=== PATIENT | female | born 1990 | race Caucasian/White ===

== ENCOUNTER → 2020-10-07 | Outpatient (CLI) | payer BC ==
--- NOTE | 2020-10-07 13:05 | MR ---
MRI brain without contrast. HISTORY: Dizziness and headache COMPARISON: None. TECHNIQUE: Multiecho multiplanar images of the brain were obtained without contrast. FINDINGS: On the T1-weighted sagittal images midline structures including the craniovertebral junction relation ships are normal. The ventricles, basal cisterns and sulci over the convexities are within normal limits and there is n o mass, mass effect or shift of the midline structures. No abnormal signal intensity is identified throughout the brain parenchyma. On the diffusion-weighted images there is no evidence of an acute ischemic event. The posterior fossa including the brainstem, fourth ventricle and cerebellar pontine angles appear no rmal. The intraorbital contents appear normal and symmetric. Visualized paranasal sinuses and mastoid air c ells are well aerated. IMPRESSION: No significant abnormality.
== END | disposition home or self-care (01) ==
LOC: RADMRIMAIN 11:40
PROVIDERS: ATTEND Family Medicine
DX: R51.9 Headache, unspecified (principal); R42 Dizziness and giddiness
CPT/HCPCS: 70551

== ENCOUNTER 2022-07-29 08:16 | Outpatient (CLI) | payer OTHER ==
[2022-07-29 10:17] VITALS: BP 123/84; PULSE 96; RESP 16; TEMP 97.3
--- NOTE | 2022-08-17 10:40 | P.MSEPDOC ---
Presenting Problems - Arrival Data Date of Arrival on Unit: 07/29/22 Time of Arrival on Unit: 08:16 Mode of Transport: Ambulatory - Complaint OB-Reason for Admission/Chief Complaint: Possible Onset of Labor Comment: pt started feeling increase in discomfort and vaginal pressure around 7:15 this am, denies lof/vb, reports + fm Medical History - Information : 2 Para: 1 Term: 1 : 0 Abortions: Spontaneous or Elective: 0 Number of Living Children: 1 - Gestational Age Gestational Age by JEFFERSON (wks/days): 38 Weeks and 4 Days - History Complications: GDM Review of Systems - Review of Systems Constitutional: No problems Breast: No problems ENT: No problems Cardiovascular: No problems Respiratory: No problems Gastrointestinal: No problems Genitourinary: No problems Musculoskeletal: No problems Neurological: No problems Skin: No problems Vital Signs - Temperature Temperature: 97.3 F Temperature Source: Temporal Artery Scan - Pulse Right Brachial Pulse Rate: 96 Pulse Assessment Method: Automatic Cuff - Respirations Respiratory Rate: 16 Oxygen Delivery Method: Room Air O2 Sat by Pulse Oximetry: 98 - Blood Pressure Right Arm Blood Pressure: 123/84 Blood Pressure Mean: 97 Blood Pressure Source: Automatic Cuff Medical Screen Scoring - Cervical Exam Dilation (cm): 2 Effacement (%): 60 Station: -3 Membranes: Intact - Uterine Contractions Frequency From (mins): 4 Frequency To (mins): 5 Duration From (seconds): 70 Duration To (seconds): 90 Intensity: Moderate Resting: Soft to palpation - Assessment - Baby A Baseline FHR: 140 Heart Rate - NICHD Category: Category I (Normal) NST: Reactive Physician Notification - Physician Notified Physician Notified Date: 07/29/22 Physician Notified Time: 10:08 Physician: Amara Issa New Order Received: Yes (dc home) Maternal Triage Index - Non-Urgent/Priority 4 Non-Urgent Priority 4: Yes Criteria Met for Priority 4: no cervical change noted with one hour recheck, pt ok to dc home at this time Disposition - Disposition OB Disposition: Discharge to home, Written follow up instructions reviewed Discharge Date: 07/29/22 Discharge Time: 10:10 I agree with the RN Medical Screening Exam: Yes Physician's MSE Comment: I have neither seen nor examined the patient. Case reviewed; plan agreed upon as documented in EMR&OBIX.: Yes Diagnosis: RELATED CONDITIONS, UNSPECIFIED, THIRD TRIMESTER
== END 2022-07-29 10:10 | disposition home or self-care (01) ==
LOC: FBPOP 08:16
PROVIDERS: ATTEND Obstetrics & Gynecology
DX: O26.893 Other specified pregnancy related conditions, third trimester (principal); Z3A.38 38 weeks gestation of pregnancy; O62.0 Primary inadequate contractions; F17.200 Nicotine dependence, unspecified, uncomplicated
CPT/HCPCS: 59025; 99213

== ENCOUNTER 2022-08-01 06:00 | Inpatient (IN) | payer OTHER ==
[2022-08-01] MEDS ORDERED: LIDOCAINE 0.5% (PF) 5 MG/ML (50 ML SDV) SQ PRN (06:35)
[2022-08-01] MEDS ORDERED: TERBUTALINE 1 MG/ML VIAL SQ PRN (06:35)
[2022-08-01] MEDS ORDERED: PENICILLIN G POTASSIUM 5,000,000 UNIT in DEXTROSE 5% IN WATER 100 ML IVPB STA ×2 (06:35)
[2022-08-01 06:50] LABS: Glucose,Whole Blood 116 mg/dL (70-110)
[2022-08-01] MEDS: OXYTOCIN 30 UNITS/500 ML NS 30 UNIT in SALINE 1 500ML.BAG IV SCH ×2 (06:55→19:44)
[2022-08-01] MEDS: LACTATED RINGERS 1,000 ML IV SCH ×3 (06:56→19:44)
[2022-08-01 07:14] LABS: Basophils # (A) 0.1 k/uL (0-0.2); Basophils % (A) 0 %; Eosinophils # (A) 0.2 k/uL (0-0.7); Eosinophils % (A) 2 %; HCT 35.7 % (34.0-46.0); HGB 11.9 gm/dL (11.4-16.0); Hypochromasia Slight; Lymphocytes # (A) 2.6 k/uL (1.0-4.8); Lymphocytes % (A) 24 %; MCH 25.7 pg (25.0-35.0); MCHC 33.3 g/dL (31.0-37.0); MCV 77.1 fL (80.0-100.0); Mean Platelet Volume 13.3; Monocytes # (A) 0.6 k/uL (0-1.0); Monocytes % (A) 6 %; Neutrophils # (A) 7.1 k/uL (1.3-7.7); Neutrophils % (A) 66 %; Platelet Count 192 k/uL (150-450); Poikilocytosis Slight; RBC 4.63 m/uL (3.80-5.40); RDW 14.9 % (11.5-15.5); WBC 10.8 k/uL (3.8-10.6)
[2022-08-01] MEDS ORDERED: BUTORPHANOL 1 MG/ML 1 ML VIAL IV PRN (08:32)
--- NOTE | 2022-08-01 08:39 | P.HPOB ---
History of Present Illness H&P Date: 08/01/22 Chief Complaint: 39-0/7 weeks, induction of labor the patient is a 32-year-old 3 para 1011 admitted at 39-0/7 weeks as established by 8 week ultrasound. She is admitted for induction of labor with a diagnosis of diabetes for which she has been on insulin managed by endocrinology during the . She additionally had a maternal- medicine consult with no new recommendations from their perspective. Her has otherwise been uncomplicated. She has had reassuring testing on a weekly basis since 32 weeks. Group B strep status is positive. On labor and delivery, all signs are reassuring with a category 1 heart rate tracing. Obstetrical history: 3 para 1011 with 1 previous term delivery without complications in 1 early miscarriage not requiring D&C. Current statistics are listed in history of present illness. EDC of 08/08/2022 was established by 8 week ultrasound. Laboratory workup demonstrates a blood type is B+ with a negative antibody screen. Rubella status is immune. Remainder of the laboratory workup was within normal limits. Glucola was not performed as the patient was a previous gestational diabetic. Group B strep status is positive. Gynecologic history: Unremarkable with no history of any infections to include STDs. Review of Systems review of systems is confined to history of present illness. Past Medical History Past Medical History: Rheumatoid Arthritis (RA) Additional Past Medical History / Comment(s): chronic back pain History of Any Multi-Drug Resistant Organisms: None Reported Past Surgical History: Appendectomy, Cholecystectomy Additional Past Surgical History / Comment(s): nose surgery Past Anesthesia/Blood Transfusion Reactions: No Reported Reaction Past Psychological History: No Psychological Hx Reported Smoking Status: Never smoker Past Alcohol Use History: Occasional Past Drug Use History: None Reported - Past Family History Father Family Medical History: Diabetes Mellitus Mother Family Medical History: Hypertension Medications and Allergies Home Medications Medication Instructions Recorded Confirmed Type Insulin Degludec [Tresiba] 60 units SQ HS 07/29/22 08/01/22 History Vit No.179/Iron/Folic 1 tab PO DAILY 07/29/22 08/01/22 History [ Tablet] Allergies Allergy/AdvReac Type Severity Reaction Status Date / Time No Known Allergies Allergy Verified 07/29/22 08:37 Exam Vital Signs Temp Pulse Resp BP Pulse Ox 08/01/22 06:34 96.0 F L 92 16 126/78 99 Intake and Output 07/31/22 08/01/22 08/01/22 22:59 06:59 14:59 Other: Weight 102.512 kg in general, this is a well-developed, well-nourished white female in no acute distress. Her heart has a regular rhythm and rate without murmur. Her lungs are clear to auscultation bilaterally in all lowery. Her abdomen is gravid, nondistended, has normal active bowel sounds, is soft, nontender, and without any palpable masses aside from uterine fundus. Her extremities are without any cyanosis, clubbing, or significant edema and are nontender to palpation bilaterally. Digital cervical examination demonstrates her cervix to be 3+ meters dilated, 70-80% effaced, with the vertex in presentation at -2 station. Artificial rupture of membranes is carried out demonstrating clear fluid. Results Result Diagrams: 08/01/22 06:53 Abnormal Lab Results - Last 24 Hours (Table) 08/01/22 08/01/22 Range/Units 06:48 06:53 WBC 10.8 H (3.8-10.6) k/uL MCV 77.1 L (80.0-100.0) fL POC Glucose (mg/dL) 116 H (70-110) mg/dL Assessment and Plan (1) Term Current Visit: Yes Status: Acute Code(s): Z34.90 - ENCNTR FOR SUPRVSN OF NORMAL , UNSP, UNSP TRIMESTER SNOMED Code(s): 10000588 (2) Diabetes Current Visit: Yes Status: Acute Code(s): E11.9 - TYPE 2 DIABETES MELLITUS WITHOUT COMPLICATIONS SNOMED Code(s): 53411662 (3) Mother positive for group B Streptococcus colonization Current Visit: Yes Status: Acute Code(s): P00.82 - NB AFF BY (POSITIVE) MATERN GROUP B STREP (GBS) COLONIZATION SNOMED Code(s): 19593716684522 Plan: the patient is admitted for essentially elective induction of labor though she is a diabetic with a suspected large baby. She has had Pitocin started along with antibiotic prophylaxis for group B strep. Artificial rupture of membranes has been undertaken with clear fluid. She will have close maternal and surveillance and expectant management will be practiced. She is a good candidate for either IV or epidural analgesia, whichever she may choose.
[2022-08-01] MEDS ORDERED: fentaNYL (PF) 50 MCG/ML 5 ML AMP ONE (09:58)
[2022-08-01] MEDS ORDERED: ROPIVACAINE 5 MG/ML 20 ML AMPULE ONE (09:58)
[2022-08-01] MEDS ORDERED: SODIUM CHLORIDE 0.9% 100 ML BAG ONE (09:58)
[2022-08-01] MEDS: PENICILLIN G POTASSIUM 2,500,000 UNIT in DEXTROSE 5% IN WATER 100 ML IVPB SCH ×4 (10:54→14:55)
[2022-08-01 11:39] LABS: Large Platelets Present
[2022-08-01 12:00] LABS: Glucose,Whole Blood 86 mg/dL (70-110)
[2022-08-01 12:56] LABS: Glucose,Whole Blood 78 mg/dL (70-110)
[2022-08-01] MEDS ORDERED: BENZOCAINE/MENTHOL SPRAY 1 GM/SPRAY AEROSOL TOPICAL PRN (17:01)
[2022-08-01] MEDS ORDERED: diphenhydrAMINE 50 MG CAP PO PRN (17:01)
[2022-08-01] MEDS ORDERED: SIMETHICONE 80 MG CHEWABLE PO PRN (17:01)
[2022-08-01] MEDS ORDERED: HYDROcodone/APAP 5-325MG 1 EACH TAB PO PRN (17:01)
[2022-08-01] MEDS ORDERED: diphenhydrAMINE 25 MG CAP PO PRN (17:01)
[2022-08-01] MEDS ORDERED: ZOLPIDEM 5 MG TAB PO PRN (17:01)
[2022-08-01] MEDS ORDERED: diphenhydrAMINE 50 MG/ML 1 ML VIAL IVP PRN ×2 (17:01)
[2022-08-01] MEDS ORDERED: LANOLIN CREAM 5 GM TUBE TOPICAL PRN (17:01)
[2022-08-01] MEDS ORDERED: HYDROCORTISONE 2.5% RECTAL CREAM 30 GM TUBE RECTAL PRN (17:01)
--- NOTE | 2022-08-01 17:07 | P.PROBDLV ---
Vaginal Delivery Note - . Vaginal Delivery Note: the patient is a 32-year-old 3 para 1011 admitted at 39-0/7 weeks by good dating parameters. She is a known insulin-dependent diabetic during the and has been managed by endocrinology throughout. Her testing was reassuring throughout. Otherwise her was essentially uncomplicated. She was admitted with favorable cervix at 39 weeks for essentially elective induction of the diabetes is of concern. She additionally is thought to have a fairly large baby at approximately the 82nd percentile growth in the late third trimester. On labor and delivery, there was a category 1 heart rate tracing. She had Pitocin started as well as antibody prophylaxis for group B strep. She then had artificial rupture of membranes of clear fluid. She made progress to the active phase of labor and had an epidural catheter placed for analgesia. She then progressed steadily through the afternoon to complete and then pushed over the course of approximately 15 minutes to a normal spontaneous vaginal delivery of a viable 9 lbs. 6 oz. baby girl with Apgars of 9 at 1 minute and 9 at 5 minutes delivered in the direct occiput anterior position. The placenta was delivered spontaneously, intact, and grossly normal although very large. There was a grossly normal three-vessel cord inserted approximately 3 cm from the margin of the placental disc. There was a small first-degree midline perineal laceration which was repaired with a single [id number] stitch of 3-0 chromic catgut without difficulty. Estimated blood loss for the case was approximate 400 mL. There were no complications. All sponge, instrument, and needle counts were correct. Both mother and infant are resting comfortably in recovery.
[2022-08-01] MEDS ORDERED: OXYTOCIN 30 UNITS/500 ML NS 30 UNIT in SALINE 1 500ML.BAG IV SCH (17:15)
[2022-08-01 18:06] LABS: Glucose,Whole Blood 123 mg/dL (70-110)
[2022-08-01] MEDS: SENNOSIDES-DOCUSATE SODIUM 1 EACH TAB PO SCH (19:41)
[2022-08-01] MEDS: IBUPROFEN 600 MG TAB PO PRN (20:04)
[2022-08-01 21:05] LABS: Glucose,Whole Blood 164 mg/dL (70-110)
[2022-08-01] MEDS: ACETAMINOPHEN TAB 325 MG TAB PO PRN (22:07)
[2022-08-02] MEDS: HYDROcodone/APAP 7.5-325MG 1 EACH TAB PO PRN ×2 (02:11→09:41)
[2022-08-02] MEDS: PENICILLIN G POTASSIUM 2,500,000 UNIT in DEXTROSE 5% IN WATER 100 ML IVPB SCH ×4 (02:18→05:26)
[2022-08-02] MEDS: IBUPROFEN 600 MG TAB PO PRN ×2 (05:17→17:57)
[2022-08-02 06:26] LABS: Basophils % (A) 0 %; Eosinophils # (A) 0.1 k/uL (0-0.7); Eosinophils % (A) 1 %; HCT 28.7 % (34.0-46.0); HGB 9.6 gm/dL (11.4-16.0); Hypochromasia Moderate; Lymphocytes # (A) 2.7 k/uL (1.0-4.8); Lymphocytes % (A) 19 %; MCHC 33.3 g/dL (31.0-37.0); MCV 78.1 fL (80.0-100.0); Mean Platelet Volume 14.7; Monocytes # (A) 0.7 k/uL (0-1.0); Monocytes % (A) 5 %; Neutrophils # (A) 10.1 k/uL (1.3-7.7); Neutrophils % (A) 73 %; Platelet Count 164 k/uL (150-450); RBC 3.68 m/uL (3.80-5.40); RDW 14.9 % (11.5-15.5); WBC 13.9 k/uL (3.8-10.6)
[2022-08-02 07:02] LABS: Glucose,Whole Blood 109 mg/dL (70-110)
[2022-08-02 07:51] VITALS: RESP 16
[2022-08-02] MEDS: SENNOSIDES-DOCUSATE SODIUM 1 EACH TAB PO SCH ×2 (07:56→20:03)
--- NOTE | 2022-08-02 11:09 | P.PNOBGVD ---
Subjective - Subjective Patient reports: Reports appetite normal, Reports voiding normally, Reports pain well controlled, Reports ambulating normally : doing well, nursing well Objective - Latest Vital Signs Latest vital signs: Vital Signs Temp Pulse Resp BP Pulse Ox 08/02/22 07:49 98.0 F 79 16 113/74 99 08/02/22 03:45 97.7 F 78 18 126/81 99 08/02/22 00:00 98 F 69 18 117/74 96 08/01/22 20:00 98.4 F 84 18 124/75 97 08/01/22 19:00 85 16 135/79 08/01/22 18:30 89 16 118/77 08/01/22 18:00 88 16 119/77 08/01/22 17:45 89 16 129/74 08/01/22 17:30 100 16 123/77 08/01/22 17:15 96 17 129/84 08/01/22 17:01 97.6 F 96 16 127/90 Intake and Output 08/01/22 08/02/22 08/02/22 22:59 06:59 14:59 Intake Total 25.633 Output Total 720 Balance -694.367 Intake: Intake, IV Titration 25.633 Amount Oxytocin 30 Units/500 ml 25.633 Ns 30 unit In Saline 1 500ml.bag @ Per Protocol IV .Q0M [facility] Rx#:[id number] Output: Urine 200 Straight 200 Output, Quantitative 520 Blood Loss Other: # Voids 2 1 - Exam Extremities: Present: normal Abdomen: Present: normal appearance, soft Uterus: Present: normal, firm (the uterine fundus as tonic and nontender at the umbilicus.) - Labs Labs: Abnormal Lab Results - Last 24 Hours (Table) 08/01/22 08/01/22 08/02/22 Range/Units 18:05 21:04 06:13 WBC 13.9 H (3.8-10.6) k/uL RBC 3.68 L (3.80-5.40) m/uL Hgb 9.6 L D (11.4-16.0) gm/dL Hct 28.7 L (34.0-46.0) % MCV 78.1 L (80.0-100.0) fL Neutrophils # 10.1 H (1.3-7.7) k/uL POC Glucose (mg/dL) 123 H 164 H (70-110) mg/dL Assessment and Plan (1) Term Current Visit: Yes Status: Acute Code(s): Z34.90 - ENCNTR FOR SUPRVSN OF NORMAL , UNSP, UNSP TRIMESTER SNOMED Code(s): 83477549 (2) Diabetes Current Visit: Yes Status: Acute Code(s): E11.9 - TYPE 2 DIABETES MELLITUS WITHOUT COMPLICATIONS SNOMED Code(s): 48783052 (3) Mother positive for group B Streptococcus colonization Current Visit: Yes Status: Acute Code(s): P00.82 - NB AFF BY (POSITIVE) MATERN GROUP B STREP (GBS) COLONIZATION SNOMED Code(s): 38576333178000 (4) Normal spontaneous vaginal delivery Current Visit: Yes Status: Acute Code(s): O80 - ENCOUNTER FOR FULL-TERM UNCOMPLICATED DELIVERY SNOMED Code(s): 10204004 Plan: the infant is requiring treatment for elevated bilirubin and will require to stay another night. As result, I would anticipate discharge home tomorrow. I have encouraged patient ambulate routinely in the hallways. Otherwise, routine care will be practiced.
[2022-08-02] MEDS: ACETAMINOPHEN TAB 325 MG TAB PO PRN ×2 (14:30→21:14)
[2022-08-03] MEDS: IBUPROFEN 600 MG TAB PO PRN (00:03)
--- NOTE | 2022-08-03 12:25 | P.PNOBGVD ---
Subjective - Subjective Principal diagnosis: Normal Vaginal Delivery Interval history: Patient doing well this morning. She is ambulating, voiding without difficulty, tolerating PO without nausea or vomiting. She is with supplementation for her viable female infant at bedside. Lochia is about as heavy as menses. Patient reports: Reports appetite normal, Reports voiding normally, Reports pain well controlled, Reports ambulating normally : doing well Objective - Latest Vital Signs Latest vital signs: Vital Signs Temp Pulse Resp BP Pulse Ox 08/03/22 00:00 98.7 F 81 16 115/72 98 08/02/22 20:00 97.8 F 84 16 109/70 98 08/02/22 16:00 97.4 F L 74 16 121/72 - Exam Extremities: Present: normal Abdomen: Present: normal appearance, soft Uterus: Present: normal, firm Assessment and Plan Assessment: 32 y/o day #2 from [facility] for GDMA2 on insulin. Will discharge home today. Discussed that given GDMA2, patient will likely have 2hr GTT at 6 weeks . Follow up with Dr. Marcus in 6 weeks for appointment.
--- NOTE | 2022-08-03 12:32 | P.DS ---
Providers Date of admission: 08/01/22 06:21 Expected date of discharge: 08/03/22 Attending physician: Benjamín Marcus Primary care physician: Stated None Hospital Course: 32 y/o who is being discharged home on day #2 from [facility] for GDMA2 on insulin. She had a normal vaginal delivery on 08/01 for viable female . She met all milestones appropriately. needed bilirubin blanket on day 1 of life. Discussed that given GDMA2, patient will likely have 2hr GTT at 6 weeks . Follow up with Dr. Marcus in 6 weeks for appointment. Patient Condition at Discharge: Good Plan - Discharge Summary Discharge Rx Participant: No New Discharge Prescriptions: No Action Vit No.179/Iron/Folic [ Tablet] 1 tab PO DAILY Insulin Degludec [Tresiba] 60 units SQ HS Ibuprofen 1 tab PO TID PRN MDD 2400 mg PRN Reason: Pain Acetaminophen [Tylenol] 2 tab PO QID PRN PRN Reason: Pain Discharge Medication List Insulin Degludec [Tresiba] 60 units SQ HS 07/29/22 [History] Vit No.179/Iron/Folic [ Tablet] 1 tab PO DAILY 07/29/22 [Hist ory] Acetaminophen [Tylenol] 2 tab PO QID PRN 08/03/22 [History] Ibuprofen 1 tab PO TID PRN MDD 2400 mg 08/03/22 [History] Follow up Appointment(s)/Referral(s): Benjamín Marcus MD [STAFF PHYSICIAN] - 6 Weeks Patient Instructions/Handouts: Depression (DC), Perineal Care (DC), Caring for Your Baby (DC), Normal Growth and Development of Newborns (DC) Activity/Diet/Wound Care/Special Instructions: Activity is tolerated. 6 weeks of pelvic rest. Take medications as prescribed. Discharge Disposition: HOME SELF-CARE
[2022-08-03 15:15] VITALS: BP 124/76; PULSE 74; TEMP 97.7
[2022-08-03] MEDS: SENNOSIDES-DOCUSATE SODIUM 1 EACH TAB PO SCH (15:24)
== END 2022-08-03 14:45 | disposition home or self-care (01) | DRG 807 ==
LOC: 4FBP 06:21
PROVIDERS: ADMIT Obstetrics & Gynecology; ATTEND Obstetrics & Gynecology
PROC: 10E0XZZ Delivery of Products of Conception, External Approach (ICD-10-PCS; principal; 2022-08-01)
PROC: 0HQ9XZZ Repair Perineum Skin, External Approach (ICD-10-PCS; 2022-08-01)
DX: O24.424 Gestational diabetes mellitus in childbirth, insulin controlled (principal); Z37.0 Single live birth; M06.9 Rheumatoid arthritis, unspecified; O70.0 First degree perineal laceration during delivery; O99.824 Streptococcus B carrier state complicating childbirth; Z3A.39 39 weeks gestation of pregnancy
CPT/HCPCS: 85025; 86850; 86900; 86901

== ENCOUNTER → 2022-12-11 | Outpatient (CLI) | payer OTHER ==
--- NOTE | 2022-12-11 09:24 | MR ---
EXAMINATION TYPE: MR lumbar spine wo con DATE OF EXAM: 12/11/2022 7:35 AM COMPARISON: Plain film on 01/17/2012. CLINICAL INDICATION:Female, 32 years old with history of M51.27, M51.26; Low back pain into left butt ocks TECHNIQUE: Multi planar, multi sequence imaging was performed utilizing: T1-weighted, T2-weighted, a nd turbo inversion recovery imaging of the lumbar spine. IV Contrast: None. FINDINGS: Alignment: The lumbar vertebral bodies have preserved heights and alignment. Cord: The conus medullaris and the distal spinal cord appear unremarkable with regards to their signa l intensity and morphology. Bones/Discs: Mild heterogenous bone marrow signal a couple scattered foci of high T2/T1 signal which could represent focal fat versus vertebral body hemangiomas. No abnormal bony edema on inversion armando very sequences. No significant degeneration changes identified. Intervertebral disc signal is maintai steph. T12-L1: No evidence of significant spinal canal stenosis or neural foraminal stenosis. L1-L2: No evidence of significant spinal canal stenosis or neural foraminal stenosis. L2-L3: No evidence of significant spinal canal stenosis or neural foraminal stenosis. L3-L4: No evidence of significant spinal canal stenosis or neural foraminal stenosis. L4-L5: No evidence of significant spinal canal stenosis or neural foraminal stenosis. L5-S1: The disc is rounded posterior morphology without significant spinal canal stenosis. Facet join t arthropathy with mild neural foraminal stenosis. Other findings: None. IMPRESSION: No definitive evidence of disc herniation or significant spinal canal stenosis. No finding to correla te with patient's low back pain that extends into her left buttock.
== END | disposition home or self-care (01) ==
LOC: RADMRIMAIN 06:29
PROVIDERS: ATTEND Family Medicine
DX: M51.27 Other intervertebral disc displacement, lumbosacral region (principal); M51.26 Other intervertebral disc displacement, lumbar region
CPT/HCPCS: 72148